=== PATIENT | male | born 1975 | race Caucasian/White ===

== ENCOUNTER 2020-06-10 09:45 | Outpatient (CLI) | payer MEDICAID, SELFPAY ==
--- NOTE | 2020-06-10 09:53 | US_ITS ---
WS: [id number] RIGHT UPPER QUADRANT ULTRASOUND HISTORY: CALCULUS OF GALLBLADDER W/O CHOLECYSTITIS W/O OBSTRUCTION COMPARISON: None available. Liver: 23.1 cm in length. Severe hepatomegaly and hepatic steatosis. The entire liver cannot be evalu ated due to attenuation. No duct dilatation. Masses cannot be excluded. Gallbladder: Gallbladder cannot be adequately evaluated. There is some shadowing from the region of t he gallbladder. Patient has known cholelithiasis. CBD: Not visualized. Pancreas: Normal size and echogenicity. Right kidney: 11.7 cm in length. Poorly visualized. No hydronephrosis. Aorta and IVC: Poorly visualized. No ascites. US/US gall bladder [id number] IMPRESSION: 1. Extremely limited evaluation of the RIGHT upper quadrant. 2. Severe hepatic steatosis and hepatomegaly. 3. Gallbladder is not adequately identified.
--- NOTE | 2020-06-10 09:53 | XRR_ITS ---
PROCEDURE INFORMATION: Exam: XR Chest, 2 Views Exam date and time: 06/10/2020 10:29 AM Age: 45 years old Clinical indication: Patient HX: C/O low back pain with radiculopathy. Essential hypertension TECHNIQUE: Imaging protocol: XR of the chest Views: 2 views. COMPARISON: No relevant prior studies available. FINDINGS: Lungs: Hyperinflation, without acute airspace disease. Pleural space: Extra pleural thickening. No significant pleural effusion. Heart/Mediastinum: Cardiac silhouette upper limits of normal in size. Bones/joints: Degenerative change. XR/XR chest 2V* [id number] IMPRESSION: No acute airspace disease.
[2020-06-10 11:14] LABS: Basophils # 0.1 10^3/uL (0.0-0.1); Basophils % 0.6 %; Eosinophils # 1.2 10^3/uL (0.0-0.8); Eosinophils % 8.6 %; Hematocrit 44.2 % (42.0-52.0); Hemoglobin 13.7 g/dL (11.7-16.6); Lymphocytes # 1.9 10^3/uL (0.8-4.8); Lymphocytes % 13.6 %; Mean Corpuscular Hemoglobin 27.6 pg (28.0-34.0); Mean Corpuscular Volume 88.9 fL (80-94); Mean Platelet Volume 9.5 fL (7.4-10.4); Neutrophils # 9.77 10^3/uL (1.8-7.7); Neutrophils % 69.5 %; Nucleated Red Blood Cells % 0 %; Platelet Count 307 10^3/cmm (130-400); Red Blood Count 4.97 10^6/uL (4.1-5.3); Red Cell Distribution Width 14.8 % (12.1-15.1); White Blood Count 14.1 10^3/uL (4.0-10.0)
[2020-06-10 11:57] LABS: Alanine Aminotransferase 21 U/L (0-41); Alkaline Phosphatase 71 IU/L (40-130); Anion Gap 12.1 (5-19); Aspartate Amino Transferase 36 U/L (0-40); Blood Urea Nitrogen 13 mg/dL (6-20); Calcium 8.5 mg/dL (8.5-10.5); Carbon Dioxide 24 mmol/L (22-29); Chloride 104 mmol/L (98-107); Chol HDL Ratio 4.34 mg/dL (1.0-5.00); Cholesterol 178 mg/dL (0-200); Globulin 4.1 g/dL (1.3-4.6); Glomerular Filtration Rate 91.3 mL/min (90-130); Glucose 103 mg/dL (65-115); HDL Cholesterol 41 mg/dL (60-100); LDL Cholesterol Calculated 115 mg/dL (50-129); Osmolality Calculated 278 mOsm/kg (285-295); Potassium 4.1 mmol/L (3.5-5.1); Sodium 136 mmol/L (136-145); Thyroid Stimulating Hormone 1.84 uIU/mL (0.27-4.20); Total Bilirubin 0.2 mg/dL (0.15-1.2); Total Protein 8.1 g/dL (6.6-8.7); Triglycerides 110 mg/dL (0-150); Vitamin B12 437 pg/mL (232-1245)
[2020-06-13 14:24] LABS: Testosterone, Free 24.8 pg/mL (46.0-224.0)
== END 2020-06-10 09:46 | disposition home or self-care (01) ==
PROVIDERS: PCP Family Medicine; Visit Provider Physician Assistant Medical
DX: K80.20 Calculus of gallbladder without cholecystitis without obstruction (principal); M54.5 Low back pain; G89.29 Other chronic pain; R53.83 Other fatigue; Z28.21 Immunization not carried out because of patient refusal; I10 Essential (primary) hypertension; K76.0 Fatty (change of) liver, not elsewhere classified; R16.0 Hepatomegaly, not elsewhere classified
CPT/HCPCS: 36415; 71046; 72100; 76705; 80053; 80061; 82607; 84402; 84403; 84443; 85025